=== PATIENT | male | born 1950 | race Caucasian/White ===

== ENCOUNTER 2020-11-03 09:05 | Inpatient (IN) | payer MEDICARE ==
[~2020-11-03] VITALS: Ht 185.4 cm; Wt 113.9 kg
--- NOTE | 2020-11-03 09:10 | NUR ---
GABRIELE FROM [facility] C/O BACK PAIN AND EAR PAIN S/P TRIP AND FALL. PT HAS A FEVER OF 100.2. PATIENT A/OX3-4, BREATHING EVEN AND UNLABORED, NO SOB NOTED. NEEDS ATTENDED. KEPT COMFORTABLE.
--- NOTE | 2020-11-03 09:15 | NUR ---
DR. LY AT BEDSIDE FOR EVAL.
--- NOTE | 2020-11-03 09:20 | NUR ---
IV LINE ESTABLISHED, BLOOD DRAWN SENT TO LAB. COVID SWAB SENT.
[2020-11-03] MEDS ORDERED: TDAP [DIPH/PERTUSSIS/TET] 0.5 ML VIAL IM ONE ×2 (09:28→09:30)
[2020-11-03] MEDS ORDERED: ACETAMINOPHEN ES 500 MG TABLET ONE (09:28)
[2020-11-03] MEDS ORDERED: ACETAMINOPHEN ES 500 MG TABLET PO ONE (09:30)
--- NOTE | 2020-11-03 09:50 | NUR ---
CHROMOSOMAL DISORDERS COUNSELOR AT BEDSIDE FOR XRAY.
[2020-11-03 09:51] LABS: BASOPHILS % (AUTO) 0.3 % (0.0-2.0); HEMATOCRIT 41 % (39-51); HEMOGLOBIN 13.4 g/dL (13.5-17.5); LYMPHOCYTES # (AUTO) 0.7 /CMM (0.8-4.8); LYMPHOCYTES % (AUTO) 15.2 % (20.0-44.0); MEAN CORPUSCULAR HGB CONC 33 g/dl (31.0-36.0); MEAN CORPUSCULAR VOLUME 100 fL (80-96); MONOCYTES # (AUTO) 1.1 /CMM (0.1-1.30); MONOCYTES % (AUTO) 23.8 % (2.0-12.0); NEUTROPHILS # (AUTO) 2.9 /CMM (1.8-8.9); NEUTROPHILS % (AUTO) 60.7 % (43.0-81.0); PLATELET COUNT (AUTO) 100 /CMM (150-450); RED BLOOD CELL COUNT(AUTO) 4.08 MIL/uL (4.5-6.0); WHITE BLOOD COUNT (AUTO) 4.7 K/uL (4.3-11.0)
[2020-11-03] MEDS ORDERED: LIDOCAINE HCL/MPF 1% 30 ML VIAL IJ ONE (09:52)
[2020-11-03 11:10] LABS: CALCIUM, SERUM 8.8 mg/dL (8.5-10.1); POTASSIUM 3.8 mmol/L (3.5-5.1)
[2020-11-03] MEDS ORDERED: OXYB10TA4 PO (11:10)
[2020-11-03] MEDS ORDERED: RAMI2.5C2 PO (11:10)
[2020-11-03] MEDS ORDERED: CHOL100034 PO (11:10)
[2020-11-03] MEDS ORDERED: POTA20TA83 PO (11:10)
[2020-11-03] MEDS ORDERED: MAGN400O6 PO (11:10)
[2020-11-03] MEDS ORDERED: BISA-79 PO (11:10)
[2020-11-03] MEDS ORDERED: METF-442 PO (11:10)
[2020-11-03] MEDS ORDERED: BENZ1TAB7 PO (11:10)
[2020-11-03] MEDS ORDERED: ASPI-1169 PO (11:10)
[2020-11-03] MEDS ORDERED: ATOR10TA PO (11:10)
[2020-11-03] MEDS ORDERED: FURO-144 PO (11:10)
[2020-11-03] MEDS ORDERED: CLOZ100T32 PO (11:10)
[2020-11-03] MEDS ORDERED: GLIP5TAB13 PO (11:10)
[2020-11-03] MEDS ORDERED: ACET325T53 PO (11:10)
[2020-11-03] MEDS ORDERED: TAMS-12 PO (11:10)
[2020-11-03] MEDS ORDERED: PIOG45TA5 PO (11:10)
[2020-11-03] MEDS ORDERED: DIVA-78 PO (11:10)
[2020-11-03] MEDS ORDERED: TRIH5TAB2 PO (11:10)
[2020-11-03 11:16] LABS: ALBUMIN 3.2 g/dL (3.4-5.0); BILIRUBIN,DIRECT 0.2 mg/dL (0.0-0.2); BILIRUBIN,TOTAL 0.6 mg/dL (0.2-1.0); TOTAL PROTEIN, SERUM 6.6 g/dL (6.4-8.2)
--- NOTE | 2020-11-03 11:20 | NUR ---
RADIOLOGY CALLED TO INFORM THAT CT SCAN FOR THIS PT WILL BE DELAYED FOR 30MIN D/T PT IS COVID POSITIVE. AWARE.
--- NOTE | 2020-11-03 11:22 | NUR ---
pt noted with o2 sat o2 92-94% on ra. placd on 02 via nc. satting 98%
--- NOTE | 2020-11-03 11:25 | NUR ---
MOVE PACKET TURNED IN, NURSING SUP NOTIFIED FOR BED REQUEST.
[2020-11-03] MEDS ORDERED: CT SWABBABLE VALVE TRANS SET 1 EA INFUS.SET MC ONE (11:52)
[2020-11-03] MEDS ORDERED: IOHEXOL-300 100 ML VIAL IV ONE (11:52)
[2020-11-03] MEDS ORDERED: IV NS 0.9% 250 ML IV ONE (11:52)
--- NOTE | 2020-11-03 11:58 | NUR ---
PT TO CT ON [place]
[2020-11-03 12:55] LABS: BAND % (MANUAL) 1 % (0.0-5.0); LYMPHOCYTES % (MANUAL) 15 % (16-48); MONOCYTES % (MANUAL) 15 % (0-11.0); NEUTROPHILS % (MANUAL) 69 (42-76)
--- NOTE | 2020-11-03 13:28 | NUR ---
dr hughes paged thru his office staff
--- NOTE | 2020-11-03 13:40 | NUR ---
CALLED OFFICE OF DR GUO, PAGED
--- NOTE | 2020-11-03 13:57 | NUR ---
dr hughes office repaged. awaiting call back.
--- NOTE | 2020-11-03 14:19 | NUR ---
pt in bed sleeping. nad noted
--- NOTE | 2020-11-03 15:23 | NUR ---
BED 203
--- NOTE | 2020-11-03 15:30 | NUR ---
REPORT GIVEN TO CAROLYNE GRIMES.
--- NOTE | 2020-11-03 15:47 | NUR ---
PT TRANSPORTED TO UNIT ON [facility] WITH EMT AND RN AT BEDSIDE W/ ACLS PROTOCOL. NAD NOTED DURING TRANSPORT.
[2020-11-03] MEDS ORDERED: MAGNESIUM HYDROXIDE 30 ML UDC PO PRN (19:00)
[2020-11-03] MEDS ORDERED: BISACODYL (5 MG) 5 MG TABLET.DR PO PRN (19:00)
--- NOTE | 2020-11-03 19:30 | NUR ---
BISQUE CLEANER OPENING NOTE RECEIVED PATIENT IN BED. A/OX3. ON OXYGEN 2L/MIN VIA NASAL CANNULA. RESPIRATIONS ARE EVEN AND UNLABORED. NO S/S SOB NOTED. NO C/O PAIN AT THIS TIME. EXTERNAL TELE MONITOR READS SINUS TACHY HR 105. IN NO APPARENT DISTRESS. IV ACCESS IN HAND#22 PATENT AND SALINE LOCKED. BED IS LOW AND LOCKED, HOB ELEVATED IN SEMI FOWLERS, SIDE RAILS UP X2, CALL LIGHT WITHIN REACH. WILL CONTINUE TO MONITOR.
[2020-11-03 20:00] VITALS: BP 126/69
[2020-11-03] MEDS ORDERED: DEXTROSE 50%-WATER 50 ML DISP.SYRIN IV PRN (20:00)
[2020-11-03] MEDS ORDERED: ONDANSETRON HCL/PF 4 MG/2 ML VIAL IV PRN (20:30)
[2020-11-03] MEDS ORDERED: MORPHINE SULFATE INJ 2 MG/ML DISP.SYRIN IV PRN (20:30)
[2020-11-03] MEDS: ZITHROMAX 500 MG/250 ML D5W IV SCH ×2 (22:42)
[2020-11-03] MEDS: BLOOD SUGAR DIAGNOSTIC 1 EACH STRIP IN SCH (22:46)
[2020-11-03] MEDS: ATORVASTATIN 10 MG TABLET PO SCH (22:47)
[2020-11-03] MEDS: CLOZAPINE 100 MG TABLET PO SCH (22:47)
[2020-11-03] MEDS: TAMSULOSIN 0.4 MG CAP.SR.24H PO SCH (22:47)
[2020-11-03] MEDS: INSULIN REGULAR, HUMAN 100 UNIT/ML 3 ML VIAL SQ PRN (22:59)
[2020-11-04] VITALS: BP 109/52
--- NOTE | 2020-11-04 00:20 | NUR ---
telephone diaphragm assembler note 0000 vs show patient temp 99. ac turned on. sheets removed. will continue to monitor.
[2020-11-04] MEDS: CEFTRIAXONE 1 G in IV D5W 50 ML IV SCH ×2 (00:33→21:49)
[2020-11-04] MEDS: NITROGLYCERIN 30 GM TUBE TP SCH ×4 (00:37→17:35)
[2020-11-04 04:00] VITALS: BP 105/57
--- NOTE | 2020-11-04 05:57 | NUR ---
television operator note called rita molina for patient past medical history. fax number given [phone]. awaiting fax.
[2020-11-04] MEDS: PANTOPRAZOLE 40 MG TABLET.DR PO SCH (06:50)
[2020-11-04] MEDS: BLOOD SUGAR DIAGNOSTIC 1 EACH STRIP IN SCH ×4 (06:50→21:49)
--- NOTE | 2020-11-04 07:34 | NUR ---
telecommunicator note informed dr. hughes patient left ankle is red and warm and the other is not. md telephone order order venous doppler us if left ankle. order read back noted and carried out. will endorse to next shift.
--- NOTE | 2020-11-04 07:39 | NUR ---
AXLE INSPECTOR CLOSING NOTE PATIENT RESTING IN BED. A/OX3. REMAINS ON OXYGEN 2L/MIN VIA NASAL CANNULA. NO RESP DISTRESS NOTED. NO C/O PAIN T/O SHIFT. EXTERNAL TELE MONITOR READS SINUS TACHY. NO DISTRESS. IV ACCESS MAINTAINED IN HAND#22. BED REMAINS LOW AND LOCKED, HOB ELEVATED IN SEMI FOWLERS, SIDE RAILS UP X2, CALL LIGHT WITHIN REACH. WILL ENDORSE TO NEXT SHIFT.
[2020-11-04 08:00] VITALS: BP 122/69
--- NOTE | 2020-11-04 08:17 | NUR ---
WIRE DRAWING MACHINE TENDER OPENING NOTES RECEIVED PATIENT IN BED, AWAKE, A/O X 3. PATIENT ON OXYGEN THERAPY AT 2 LPM VIA NASAL CANULA; BREATHING IS EVEN AND UNLABORED AT THIS TIME. TELE MONITOR WITH A CURRENT READING OF SINUS TACHY 101 BPM. NO COMPLAINS OF PAIN. IV ACCESS ON L HAND G # 20. SAFETY PRECAUTIONS IN PLACE; BED IN LOW POSITION AND LOCKED, RAILS UP X2, CALL LIGHT WITHIN REACH. WILL CONTINUE TO MONITOR PATIENT.
[2020-11-04] MEDS: METFORMIN 500 MG TABLET PO SCH ×2 (08:57→16:51)
[2020-11-04] MEDS: POTASSIUM CHLORIDE 20 MEQ TAB.PRT.SR PO SCH (08:57)
[2020-11-04] MEDS: PIOGLITAZONE HCL 15 MG TABLET PO SCH (08:58)
[2020-11-04] MEDS: ASPIRIN EC 81 MG TABLET.DR PO SCH (08:58)
[2020-11-04] MEDS: DIVALPROEX SODIUM 500 MG TABLET.DR PO SCH ×3 (08:58→16:51)
[2020-11-04] MEDS: glipiZIDE 5 MG TABLET PO SCH (08:58)
[2020-11-04] MEDS: BENZTROPINE MESYLATE (1 MG) 1 MG TABLET PO SCH ×2 (08:58→16:51)
[2020-11-04] MEDS: RAMIPRIL 1.25 MG CAPSULE PO SCH (08:59)
[2020-11-04] MEDS ORDERED: FUROSEMIDE 40 MG TABLET PO SCH (09:00)
[2020-11-04] MEDS ORDERED: ASPIRIN 81 MG TAB.CHEW PO SCH (09:00)
[2020-11-04] MEDS: TRIHEXYPHENIDYL HCL 5 MG TABLET PO SCH (09:01)
[2020-11-04] MEDS: ENOXAPARIN SODIUM 40 MG/0.4 ML DISP.SYRIN SQ SCH (10:01)
--- NOTE | 2020-11-04 10:52 | NUR ---
WOUND CARE CONSULT: REVIEWED CHART, NURSING DOCUMENTATION AND PHOTOS WHICH INDICATE LEFT EAR CLOSED LACERATION AND LEFT 3RD TOE WOUND, PRESENT ON ADMISSION. RECOMMEND DPM CONSULT. DR ZAIDI NOTIFIED OF CONSULT REQUEST. IN AGREEMENT WITH PLAN OF CARE.
[2020-11-04] MEDS ORDERED: Z GUARD REMEDY 2 OZ OINT TP PRN (11:00)
[2020-11-04] MEDS: Z GUARD REMEDY 2 OZ OINT TP SCH (11:13)
[2020-11-04 11:37] LABS: THYROID STIMULATING HORMONE 1.199 uIU/mL (0.358-3.74)
[2020-11-04 12:00] VITALS: BP 119/72
[2020-11-04] MEDS ORDERED: INFLUENZA VACCINE 2020-21 0.5 ML DISP.SYRIN IM ONE ×2 (12:30→19:30)
[2020-11-04] MEDS: IV NS 0.9% 1,000 ML IV PRN (17:57)
--- NOTE | 2020-11-04 18:35 | NUR ---
DRILL SHARPENER CLOSING NOTES PATIENT IN BED, ASLEEP AT THIS TIME. PATIENT ON OXYGEN THERAPY AT 2 LPM VIA NASAL CANULA; BREATHING IS EVEN AND UNLABORED DURING THE DAY. TELE MONITOR WITH A CURRENT READING OF SINUS RHYTHM 81 BPM. NO COMPLAINS OF PAIN DURING THE DAY. IV ACCESS ON L HAND G # 20 INFUSING NS AT 100 MLS/HR. ALL NEEDS ATTENDED THROUGHOUT THE DAY. PATIENT CLEAN AND DRY. SAFETY PRECAUTIONS IN PLACE; BED IN LOW POSITION AND LOCKED, RAILS UP X2, CALL LIGHT WITHIN REACH. WILL ENDORSE TO FREIGHT UNLOADER NURSE.
--- NOTE | 2020-11-04 19:30 | NUR ---
SENIOR EMBEDDED SOFTWARE ENGINEER NOTE: PATIENT RESTING IN BED, NO ACUTE DISTRESS NOTED. BREATHING EVEN AND UNLABORED, NO SOB NOTED. IV TO LEFT HAND IN PLACE, INFUSING NS AT 100ML/HR. NO S/S OF HYPER/HYPOGLYCEMIA NOTED. ISOLATION PRECAUTION OBSERVED. BED LOCKED AND IN LOWEST POSITION, CALL LIGHT IN REACH. WILL CONTINUE TO MONITOR.
[2020-11-04 20:00] VITALS: BP 131/78
[2020-11-04] MEDS: ZITHROMAX 500 MG/250 ML D5W IV SCH ×2 (20:12)
[2020-11-04] MEDS: CLOZAPINE 100 MG TABLET PO SCH (21:52)
[2020-11-04] MEDS: ATORVASTATIN 10 MG TABLET PO SCH (21:52)
[2020-11-04] MEDS: TAMSULOSIN 0.4 MG CAP.SR.24H PO SCH (21:52)
[2020-11-04] MEDS: INSULIN REGULAR, HUMAN 100 UNIT/ML 3 ML VIAL SQ PRN (22:17)
--- NOTE | 2020-11-04 22:30 | NUR ---
CONTACT CENTER CONSULTANT NOTE: PATIENT BLOOD SUGAR LEVEL 184MG/DL, PATIENT TO RECEIVE 3 UNITS PER SLIDING SCALE, NO S/S OF HYPER/HYPOGLYCEMIA NOTED. SNACKS AT BEDSIDE. WILL CONTINUE TO MONITOR.
[2020-11-05 00:15] VITALS: BP 135/71
[2020-11-05] MEDS: NITROGLYCERIN 30 GM TUBE TP SCH ×4 (00:50→18:00)
[2020-11-05] MEDS: IV NS 0.9% 1,000 ML IV PRN ×2 (06:19→20:43)
[2020-11-05 06:58] LABS: BASOPHILS % (AUTO) 0.2 % (0.0-2.0); HEMATOCRIT 42 % (39-51); LYMPHOCYTES # (AUTO) 0.6 /CMM (0.8-4.8); LYMPHOCYTES % (AUTO) 17.1 % (20.0-44.0); MEAN CORPUSCULAR HGB CONC 33 g/dl (31.0-36.0); MEAN CORPUSCULAR VOLUME 99 fL (80-96); MONOCYTES # (AUTO) 0.5 /CMM (0.1-1.30); NEUTROPHILS # (AUTO) 2.2 /CMM (1.8-8.9); NEUTROPHILS % (AUTO) 67.7 % (43.0-81.0); PLATELET COUNT (AUTO) 85 /CMM (150-450); RED BLOOD CELL COUNT(AUTO) 4.26 MIL/uL (4.5-6.0); WHITE BLOOD COUNT (AUTO) 3.3 K/uL (4.3-11.0)
[2020-11-05] MEDS: BLOOD SUGAR DIAGNOSTIC 1 EACH STRIP IN SCH ×4 (07:00→21:57)
[2020-11-05] MEDS: INSULIN REGULAR, HUMAN 100 UNIT/ML 3 ML VIAL SQ PRN ×3 (07:00→22:03)
[2020-11-05 07:02] LABS: ALBUMIN 3.1 g/dL (3.4-5.0); BILIRUBIN,TOTAL 0.5 mg/dL (0.2-1.0); CALCIUM, SERUM 8.4 mg/dL (8.5-10.1); CREATININE 0.9 mg/dL (0.6-1.3); MAGNESIUM 1.8 mg/dL (1.8-2.4); PHOSPHORUS 2.8 mg/dL (2.5-4.9); POTASSIUM 3.8 mmol/L (3.5-5.1); TOTAL PROTEIN, SERUM 7.1 g/dL (6.4-8.2)
--- NOTE | 2020-11-05 07:15 | NUR ---
TELEPHONE PLANT POWER OPERATOR NOTE: PATIENT RESTING IN BED, NO ACUTE DISTRESS NOTED. BREATHING EVEN AND UNLABORED, NO SOB NOTED. IV TO LEFT HAND IN PLACE, INFUSING NS AT 100ML/HR. PATIENT BLOOD SUGAR LEVEL 176MG/DL,PATIENT TO RECEIVE 3 UNITS PER SLIDING SCALE, NO S/S OF HYPER/HYPOGLYCEMIA NOTED. ISOLATION PRECAUTION OBSERVED. BED LOCKED AND IN LOWEST POSITION, CALL LIGHT IN REACH. WILL ENDORSE TO DAY NURSE TO CONTINUE WITH PLAN OF CARE.
--- NOTE | 2020-11-05 07:15 | NUR ---
DIRECTOR MATERNAL CHILD NOTES PATIENT IN BED ALERT ORIENTED X 3. NO ACUTE DISTRESS NOTED. NO SOB NOTED. BREATHING UNLABORED. DENIED ANY PAIN. IV ACCESS PATENT AND INTACT, NO REDNESS, NO SWELLING NOTED. HEAD OF BED ELEVATED. SAFETY MEASURES IN PLACE. CALL LIGHT WITHIN REACH. WILL CONTINUE TO MONITOR ACCORDINGLY.
[2020-11-05] MEDS: PANTOPRAZOLE 40 MG TABLET.DR PO SCH (07:54)
[2020-11-05 08:00] VITALS: BP 152/105
--- NOTE | 2020-11-05 08:49 | NUR ---
MS RN NOTES DIET ORDER CLARIFIED WITH DR BRET GUO MD ORDERED CURRENT DIET STARTING TODAY.
[2020-11-05] MEDS: ENOXAPARIN SODIUM 40 MG/0.4 ML DISP.SYRIN SQ SCH (09:00)
[2020-11-05] MEDS: PIOGLITAZONE HCL 15 MG TABLET PO SCH (09:15)
[2020-11-05] MEDS: METFORMIN 500 MG TABLET PO SCH ×2 (09:15→16:38)
[2020-11-05] MEDS: POTASSIUM CHLORIDE 20 MEQ TAB.PRT.SR PO SCH (09:15)
[2020-11-05] MEDS: ASPIRIN EC 81 MG TABLET.DR PO SCH (09:15)
[2020-11-05] MEDS: DIVALPROEX SODIUM 500 MG TABLET.DR PO SCH ×3 (09:15→16:38)
[2020-11-05] MEDS: glipiZIDE 5 MG TABLET PO SCH (09:16)
[2020-11-05] MEDS: BENZTROPINE MESYLATE (1 MG) 1 MG TABLET PO SCH ×2 (09:16→16:38)
[2020-11-05] MEDS: TRIHEXYPHENIDYL HCL 5 MG TABLET PO SCH (09:16)
[2020-11-05] MEDS: RAMIPRIL 1.25 MG CAPSULE PO SCH (09:19)
[2020-11-05] MEDS: Z GUARD REMEDY 2 OZ OINT TP SCH (09:19)
--- NOTE | 2020-11-05 09:19 | NUR ---
MANAGER TECHNICAL TRAINING NOTES PLATELET 85, CLARIFIED WITH DR BRET GUO REGARDING LOVENOX IF HE WANTS GIVEN SCHEDULED 0900, DR GUO ORDER TO HOLD, ORDER CLARIFIED AND READ BACK WITH MD, NOTED AND CARRIED OUT.
[2020-11-05 10:12] LABS: CHOLESTEROL 93 mg/dL (<200); HDL CHOLESTEROL 44 mg/dL (40-60); LDL 34 mg/dL (0-99); TRIGLYCERIDES 135 mg/dL (30-150)
[2020-11-05] MEDS: ACETAMINOPHEN 325 MG TABLET PO PRN (10:30)
--- NOTE | 2020-11-05 10:30 | NUR ---
UPHOLSTERY CUTTER NOTES PATIENT SEEN AND EVALUATED BY DR BRET GUO, MADE AWARE THAT PATIENT NOTED WITH PULSE RATE 117, TEMPERATURE 100.6, NO NEW ORDER MADE AT THIS TIME.
[2020-11-05 10:46] LABS: LYMPHOCYTES % (MANUAL) 20 % (16-48); MONOCYTES % (MANUAL) 11 % (0-11.0); NEUTROPHILS % (MANUAL) 69 (42-76)
[2020-11-05 12:00] VITALS: BP 106/64
[2020-11-05 13:04] LABS: C-REACTIVE PROTEIN 11.2 mg/dL (0.0-0.9)
[2020-11-05 16:00] VITALS: BP 91/52
[2020-11-05] MEDS: DEXAMETHASONE SOD PHOSPHATE 10 MG/ML VIAL IV SCH (16:38)
--- NOTE | 2020-11-05 19:00 | NUR ---
LAGGING MACHINE OPERATOR NOTES PATIENT IN BED ALERT ORIENTED X 3. NO ACUTE DISTRESS NOTED. NO SOB NOTED. BREATHING UNLABORED. DENIED ANY PAIN. IV ACCESS PATENT AND INTACT, NO REDNESS, NO SWELLING NOTED. HEAD OF BED ELEVATED.NEEDS ATTENDED AND ANTICIPATED. SAFETY MEASURES IN PLACE. CALL LIGHT WITHIN REACH. WILL ENDORSE TO NIGHT NURSE FOR CONTINUITY OF CARE.
[2020-11-05 20:00] VITALS: BP 117/66
[2020-11-05] MEDS: CEFTRIAXONE 1 G in IV D5W 50 ML IV SCH (21:49)
[2020-11-05] MEDS: ATORVASTATIN 10 MG TABLET PO SCH (21:50)
[2020-11-05] MEDS: TAMSULOSIN 0.4 MG CAP.SR.24H PO SCH (21:50)
[2020-11-05 21:52] VITALS: BP 127/64
[2020-11-05] MEDS: CLOZAPINE 100 MG TABLET PO SCH (21:54)
[2020-11-05] MEDS: METOPROLOL TARTRATE 50 MG TABLET PO SCH (21:54)
--- NOTE | 2020-11-05 23:37 | NUR ---
pattern molder: received report from bautista young at 1915. pt in bed, awake, a/o x2-3 with periods of confusion. on 3l oxygen via nc respirations even and unlabored, spo2 ranging 90-92%. pt claimed he was a smoker for 6years, but was not dx with copd. iv access on right hand patent and flushing well, infusing with ns at 100ml/hr. sinus rhythm. 2199: all due meds administered, zithromax iv atb dc'd by . accu check performed result is 187, 3 units of insulin given per sliding scale. 2229: assisted gasoline engine assembler in providing bed bath to pt. accidentally, pt's iv access pulled out. will try inserting new iv access. safety precautions for fall initiated, call light in reach, will continue monitoring pt.
[2020-11-06] VITALS (9 sets, daily range): BP systolic 110–137; BP diastolic 50–72
[2020-11-06] MEDS: NITROGLYCERIN 30 GM TUBE TP SCH ×4 (00:08→17:03)
--- NOTE | 2020-11-06 03:33 | NUR ---
rn notes: assisted programming coordinator in providing another bed bath to pt and complete linen change, pt found playing with his bm, all hands and nails covered with stool.
[2020-11-06] MEDS: INSULIN REGULAR, HUMAN 100 UNIT/ML 3 ML VIAL SQ PRN ×4 (06:01→21:33)
[2020-11-06] MEDS: BLOOD SUGAR DIAGNOSTIC 1 EACH STRIP IN SCH ×4 (06:02→21:33)
[2020-11-06 06:37] LABS: CALCIUM, SERUM 8.5 mg/dL (8.5-10.1); CREATININE 0.9 mg/dL (0.6-1.3); MAGNESIUM 1.9 mg/dL (1.8-2.4)
--- NOTE | 2020-11-06 06:48 | NUR ---
END OF SHIFT REPORT: PT REMAINS ON 3L OXYGEN VIA NC, RESPIRATION EVEN AND UNLABORED. IV ACCESS REMAINS PATENT AND FLUSHING WELL INFUSING WITH NS AT 100 ML/HR, NO S/S OF IV INFILTRATION NOTED. REMAINS SINUS RHYTHM HR 68. REMAINS AFEBRILE. PLAN OF CARE: CONSIDER CONVALESCENT PLASMA AND REMDESEVIR. CONTINUE IV ATB. SAFETY PRECAUTIONS FOR FALL REMAINS ENGAGED, CALL LIGHT IN REACH, WILL ENDORSE TO DAY RN FOR CONTINUITY OF CARE.
[2020-11-06] MEDS: PANTOPRAZOLE 40 MG TABLET.DR PO SCH (07:36)
--- NOTE | 2020-11-06 07:51 | NUR ---
RAMP ATTENDANT OPENING NOTES RECEIVED PT ON BED, AOX3. RESPIRATION EVEN AND NON LABORED WITH NO ACUTE RESPIRATORY DISTRESS, ON O2 AT 3 LPM TOLERATING WELL. HOB ELEVATED. ABD SOFT AND NON DISTENDED WITH ACTIVE BOWEL SOUNDS, ABLE TO TOLERATE CCHO DIET. PT DENIES PAIN AND DISCOMFORT. SKIN WARM TO TOUCH AND DRY. BLE OFF LOAD. IV SITE AT RAC #20 PATENT IN FLUSHING H/L, SITE HAS NO S/SX OF INFILTRATION. IVF HELD DUE TO AUDIBLE CRACKLES WHEN IN PLACE, PT TOLERATE WATER. TELE MONITOR SHOWS SINUS RHYTHM 82 WITH BBB. ON CONTACT/DROPLET ISOLATION DUE TO +COVID, PENDING PCR. PPE UTILIZED PER PROTOCOL. BED IN LOW LOCKED POSITION, BED ALARM ON FOR ASSISTANCE ALERT, SRX2 UP FOR SAFETY, CALL LIGHT WITHIN REACH, WILL CONTINUE TO EVALUATE CARE.
[2020-11-06] MEDS: MUPIROCIN OINT 2% 22 GM TUBE TP SCH ×2 (08:41→21:26)
[2020-11-06] MEDS: DEXAMETHASONE SOD PHOSPHATE 10 MG/ML VIAL IV SCH (08:42)
[2020-11-06] MEDS: ENOXAPARIN SODIUM 40 MG/0.4 ML DISP.SYRIN SQ SCH (08:42)
[2020-11-06] MEDS: METFORMIN 500 MG TABLET PO SCH ×2 (08:43→16:04)
[2020-11-06] MEDS: METOPROLOL TARTRATE 50 MG TABLET PO SCH ×2 (08:44→21:08)
[2020-11-06] MEDS: PIOGLITAZONE HCL 15 MG TABLET PO SCH (08:44)
[2020-11-06] MEDS: glipiZIDE 5 MG TABLET PO SCH (08:44)
[2020-11-06] MEDS: POTASSIUM CHLORIDE 20 MEQ TAB.PRT.SR PO SCH (08:44)
[2020-11-06] MEDS: TRIHEXYPHENIDYL HCL 5 MG TABLET PO SCH (08:44)
[2020-11-06] MEDS: BENZTROPINE MESYLATE (1 MG) 1 MG TABLET PO SCH ×2 (08:44→16:04)
[2020-11-06] MEDS: DIVALPROEX SODIUM 500 MG TABLET.DR PO SCH ×3 (08:44→16:04)
[2020-11-06] MEDS: ASPIRIN EC 81 MG TABLET.DR PO SCH (08:44)
[2020-11-06] MEDS: RAMIPRIL 1.25 MG CAPSULE PO SCH (08:44)
[2020-11-06] MEDS: Z GUARD REMEDY 2 OZ OINT TP SCH (08:45)
--- NOTE | 2020-11-06 10:06 | NUR ---
HEEL SEAT POUNDER NOTES PER DR. BRANT DC IVF NS ORDERED, ORDER READ BACK, NOTED AND CARRIED OUT. PT AWARE
--- NOTE | 2020-11-06 11:13 | NUR ---
FLOORING MACHINE OPERATOR NOTES PT SEEN AND EVALUATED BY DR. GREENE, FLOORING MACHINE OPERATOR. WEAN OFF O2 PER MD. LOWERED TO 2LPM, SATING 94%. HOB KEPT ELEVATED. CONT TO MONITOR
--- NOTE | 2020-11-06 12:22 | NUR ---
SALES ACCOUNT LEADER NOTES YUN FROM LAB CALLED FOR COVID-19 RESULT - POSITIVE. DR. GUO PAGED.
--- NOTE | 2020-11-06 18:59 | NUR ---
ASBESTOS COVERER CLOSING NOTES PT AAOX2-3. TOLERATING O2 AT 3LPM VIA N/C SATING >92%, NO PRESENCE OF ACUTE RESPIRATORY DISTRESS. PT DENIES PAIN AND DISCOMFORT. SKIN WARM TO TOUCH AND DRY. IV SITE AT RAC #20 PATENT IN FLUSHING H/L, SITE HAS NO S/SX OF INFILTRATION. TELE MONITOR SHOWS SINUS RHYTHM 71 WITH BBB. ON CONTACT/DROPLET ISOLATION DUE PENDING PCR. PPE UTILIZED PER PROTOCOL. SAFETY MEASURES PROVIDED. ENDORSED CARE TO NEXT SHIFT.
--- NOTE | 2020-11-06 19:10 | NUR ---
TELE/RN OPENING NOTES: RECEIVED PT. RESTING ON BED, AOX3, WITH EPISODES OF CONFUSION. VERBALLY RESPONSIVE AND VENU TO MAKE NEEDS KNOWN. RESPIRATION EVEN & NON LABORED. NO S/S OF ACUTE RESPIRATORY DISTRESS, ON O2 AT 2 LPM SATURATING WELL AT 95%. HOB ELEVATED. ABD SOFT AND NON DISTENDED WITH ACTIVE BOWEL SOUNDS. PT DENIES PAIN AND DISCOMFORT. SKIN WARM TO TOUCH AND DRY. BLE OFF LOAD. IV SITE AT RAC #20 PATENT IN FLUSHING H/L, SITE HAS NO S/SX OF INFILTRATION. IVF HELD AT THIS TIME. PT TOLERATING PO HYDRATION. TELE MONITOR SHOWS SINUS RHYTHM 66. ON CONTACT/DROPLET ISOLATION DUE TO + COVID, FOR RAPID AND PCR. PPE UTILIZED PER PROTOCOL. SAFETY MEASURES IN PLACE. BED IN LOW LOCKED POSITION, BED ALARM ON FOR ASSISTANCE ALERT, SRX2 UP FOR SAFETY, CALL LIGHT WITHIN REACH, WILL CONTINUE TO MONITOR ACCORDINGLY.
[2020-11-06] MEDS: CEFTRIAXONE 1 G in IV D5W 50 ML IV SCH (21:06)
[2020-11-06] MEDS: ATORVASTATIN 10 MG TABLET PO SCH (21:08)
[2020-11-06] MEDS: CLOZAPINE 100 MG TABLET PO SCH (21:08)
[2020-11-06] MEDS: TAMSULOSIN 0.4 MG CAP.SR.24H PO SCH (21:08)
[2020-11-06] MEDS: DOXYCYCLINE 100 MG in IV D5W 100 ML IV SCH (22:06)
--- NOTE | 2020-11-06 22:30 | NUR ---
TELE/RN NOTES: ACCUCHECK OF 2200 IS 161. ADMINISTERED REG. INSULIN 3 UNITS PER SLIDING SCALE. GIVEN APPLE SAUCE PT. REQUESTED. WILL CONTINUE TO MONITOR.
[2020-11-07] VITALS: BP 128/61
--- NOTE | 2020-11-07 | NUR ---
TELE/RN NOTES: PT. REFUSED NITROL OINTMENT AND REFUSED PICTURES. EDUCATED ON RISKS AND BENEFITS. STILL REFUSED. WILL CONTINUE TO MONITOR.
[2020-11-07] MEDS: ACETAMINOPHEN 325 MG TABLET PO PRN (02:21)
[2020-11-07 04:00] VITALS: BP 137/74
--- NOTE | 2020-11-07 04:00 | NUR ---
TELE/RN NOTES: KEPT PATIENT CLEAN AND DRY, REFUSED PICTURES AGAIN AT THIS TIME. WILL CONTINUE TO MONITOR.
[2020-11-07] MEDS: NITROGLYCERIN 30 GM TUBE TP SCH ×4 (05:44→17:09)
--- NOTE | 2020-11-07 05:50 | NUR ---
TELE/RN NOTES: PT. STARTED BECOMING AGITATED. WANTING TO GET OUT OF BED AND WALK. GOT AN ORDER FOR ADULT BOTH SOFT WRIST RESTRAINTS FRO DR. JOY. PLACED AND WILL RECEHCK PT SKIN FOR CIRCULATION.
[2020-11-07] MEDS: BLOOD SUGAR DIAGNOSTIC 1 EACH STRIP IN SCH ×4 (06:51→21:44)
[2020-11-07] MEDS: INSULIN REGULAR, HUMAN 100 UNIT/ML 3 ML VIAL SQ PRN ×2 (06:52→21:46)
--- NOTE | 2020-11-07 07:11 | NUR ---
TELE/RN CLOSING NOTES: PT. REMAINS RESTING ON BED, AOX3, WITH EPISODES OF CONFUSION. VERBALLY RESPONSIVE AND ABLE TO MAKE NEEDS KNOWN. ACUTE MED. RESTRAINTS SOFT WRIST BILATERAL IN PLACED. WITH AN ORDER. WILL CHECK SKIN REGULARLY. RESPIRATION EVEN & NON LABORED. NO S/S OF ACUTE RESPIRATORY DISTRESS, ON O2 AT 2 LPM SATURATING WELL AT 95%. HOB ELEVATED. PT DENIES PAIN AND DISCOMFORT. IV SITE AT RAC #20 PATENT IN FLUSHING H/L, SITE HAS NO S/SX OF INFILTRATION. PT TOLERATING PO HYDRATION. ALL DUE MEDS GIVEN ORDERED. ACCUCHECK FOR AC IS 137. ADMIN 2 UNITS OF REG. INSULIN PER SLIDING SCALE. TELE MONITOR SHOWS SINUS RHYTHM 60S. ON CONTACT/DROPLET ISOLATION DUE TO + COVID, FOR RAPID AND PCR. PPE UTILIZED PER PROTOCOL. SAFETY MEASURES IN PLACE. BED IN LOW LOCKED POSITION, BED ALARM ON FOR ASSISTANCE ALERT, SRX2 UP FOR SAFETY, CALL LIGHT WITHIN REACH, ALL NURSING NEEDS MET AND RENDERED. KEPT CLEAN AND DRY AT ALL TIMES. WILL ENDORSE TO DAY SHIFT FOR OBEY.
--- NOTE | 2020-11-07 07:30 | NUR ---
DIRECTOR OF ACCOUNTS RECEIVABLE NOTES PT IN BED, AWAKE, ALERT TO SELF, VERBALLY RESPONSIVE, WITH CONFUSION, NO COMPLAINT OF PAIN, RESPIRATIONS NORMAL, CALL LIGHT WITHIN REACH, SOFT WRIST RESTRAINTS ON, PT TRYING TO GET OUT OF BED, SAFETY PRECAUTIONS OBSERVED, BED ALARM ON AT ALL TIMES, NEEDS ATTENDED.
[2020-11-07 08:00] VITALS: BP 124/46
[2020-11-07 08:14] LABS: C-REACTIVE PROTEIN 4.2 mg/dL (0.0-0.9)
[2020-11-07 08:21] LABS: CALCIUM, SERUM 8.8 mg/dL (8.5-10.1); CREATININE 0.8 mg/dL (0.6-1.3); POTASSIUM 4.5 mmol/L (3.5-5.1)
[2020-11-07] MEDS: ENOXAPARIN SODIUM 40 MG/0.4 ML DISP.SYRIN SQ SCH (09:00)
[2020-11-07] MEDS: PIOGLITAZONE HCL 15 MG TABLET PO SCH (09:31)
[2020-11-07] MEDS: POTASSIUM CHLORIDE 20 MEQ TAB.PRT.SR PO SCH (09:32)
[2020-11-07] MEDS: DIVALPROEX SODIUM 500 MG TABLET.DR PO SCH ×3 (09:33→17:08)
[2020-11-07] MEDS: PANTOPRAZOLE 40 MG TABLET.DR PO SCH (09:33)
[2020-11-07] MEDS: ASPIRIN EC 81 MG TABLET.DR PO SCH (09:33)
[2020-11-07] MEDS: BENZTROPINE MESYLATE (1 MG) 1 MG TABLET PO SCH ×2 (09:33→17:08)
[2020-11-07] MEDS: METFORMIN 500 MG TABLET PO SCH ×2 (09:33→17:08)
[2020-11-07] MEDS: RAMIPRIL 1.25 MG CAPSULE PO SCH (09:34)
[2020-11-07] MEDS: METOPROLOL TARTRATE 50 MG TABLET PO SCH ×2 (09:34→21:00)
[2020-11-07] MEDS: glipiZIDE 5 MG TABLET PO SCH (09:34)
[2020-11-07] MEDS: TRIHEXYPHENIDYL HCL 5 MG TABLET PO SCH (09:35)
[2020-11-07] MEDS: DEXAMETHASONE SOD PHOSPHATE 10 MG/ML VIAL IV SCH (09:35)
[2020-11-07] MEDS: DOXYCYCLINE 100 MG in IV D5W 100 ML IV SCH ×2 (09:53→20:16)
[2020-11-07] MEDS: Z GUARD REMEDY 2 OZ OINT TP SCH (10:00)
[2020-11-07] MEDS: MUPIROCIN OINT 2% 22 GM TUBE TP SCH ×2 (10:03→20:16)
[2020-11-07 12:00] VITALS: BP 153/74
--- NOTE | 2020-11-07 12:00 | NUR ---
SENIOR GRANT WRITER NOTES PT IN BED, AWAKE, ALERT TO SELF, NOT IN DISTRESS, WITH CONFUSION, NO COMPLAINT OF PAIN, SEEN BY DR. GUO, ON SOFT WRIST RESTRAINTS, PT ATTEMPTS TO PULL OUT TUBINGS, ASSISTED WITH MEALS, KEPT CLEAN AND DRY.
[2020-11-07 16:00] VITALS: BP 141/77
--- NOTE | 2020-11-07 19:00 | NUR ---
AMBULANCE OFFICER NOTES PT IN BED, RESTING, CONFUSED, ALERT TO SELF, PM MEDS GIVEN, PM CARE PROVIDED, ASSISTED WITH ADL'S AND REPOSITIONING, KEPT CLEAN, DRY AND COMFORTABLE.
[2020-11-07 19:03] LABS: BASOPHILS % (AUTO) 0.2 % (0.0-2.0); HEMATOCRIT 38 % (39-51); HEMOGLOBIN 12.7 g/dL (13.5-17.5); LYMPHOCYTES # (AUTO) 0.3 /CMM (0.8-4.8); LYMPHOCYTES % (AUTO) 6.6 % (20.0-44.0); MEAN CORPUSCULAR HGB CONC 34 g/dl (31.0-36.0); MEAN CORPUSCULAR VOLUME 98 fL (80-96); MONOCYTES # (AUTO) 0.5 /CMM (0.1-1.30); MONOCYTES % (AUTO) 10.6 % (2.0-12.0); NEUTROPHILS # (AUTO) 3.9 /CMM (1.8-8.9); NEUTROPHILS % (AUTO) 82.6 % (43.0-81.0); PLATELET COUNT (AUTO) 116 /CMM (150-450); RED BLOOD CELL COUNT(AUTO) 3.85 MIL/uL (4.5-6.0); WHITE BLOOD COUNT (AUTO) 4.7 K/uL (4.3-11.0)
--- NOTE | 2020-11-07 19:40 | NUR ---
RECRUITMENT INTERNSHIP OPENING NOTES RECEIVED PATIENT IN BED, ALERT AND ORIENTED X 2 HYPERVERBAL AND CONFUSED BUT ABLE TO FOLLOW SIMPLE DIRECTIONS. BREATHING REGULAR AND UNLABORED ON OXYGEN AT 2L/MIN VIA NASAL CANNULA, LATEST SPO2 94%. RIGHT AC G20 IV LINE INTACT AND PATENT, FLUSHING WELL WITH NO BLEEDING OR S/S OF INFILTRATION NOTED. ON CARDIAC MONITORING WITH NORMAL SINUS RHYTHM AT 95bpm. NO S/S OF PAIN/DISCOMFORT NOTED AT THIS TIME. BILATERAL SOFT WRIST RESTRAINTS ON, SKIN ASSESSMENT AND CIRCULATION CHECKED. BED LOW AND LOCKED ON SEMI FOWLERS POSITION. CALL LIGHT IN REACH. MAINTAINED ON CONTACT/DROPLET ISOLATION FOR COVID19. PROPER HAND WASHING AND ISOLATION PRECAUTION OBSERVED. WILL CONTINUE TO MONITOR.
[2020-11-07 20:00] VITALS: BP 102/73
--- NOTE | 2020-11-07 20:00 | NUR ---
INFORMATION TECHNOLOGY AUDITOR NOTES IV SITE INFILTRATED, NEW SITE REINSERTED ON RIGHT HAND G22 FLUSHING WELL WITH GOOD BLOOD BACK FLOW.
[2020-11-07 20:51] LABS: BAND % (MANUAL) 1 % (0.0-5.0); LYMPHOCYTES % (MANUAL) 8 % (16-48); MONOCYTES % (MANUAL) 7 % (0-11.0); NEUTROPHILS % (MANUAL) 84 (42-76)
[2020-11-07] MEDS: TAMSULOSIN 0.4 MG CAP.SR.24H PO SCH (21:09)
[2020-11-07] MEDS: ATORVASTATIN 10 MG TABLET PO SCH (21:09)
[2020-11-07] MEDS: CLOZAPINE 100 MG TABLET PO SCH (21:09)
[2020-11-07] MEDS: CEFTRIAXONE 1 G in IV D5W 50 ML IV SCH (21:21)
[2020-11-08] VITALS (7 sets, daily range): BP systolic 114–134; BP diastolic 65–96
[2020-11-08] MEDS: NITROGLYCERIN 30 GM TUBE TP SCH ×4 (00:47→17:25)
[2020-11-08] MEDS: BLOOD SUGAR DIAGNOSTIC 1 EACH STRIP IN SCH ×4 (06:33→22:13)
[2020-11-08] MEDS: PANTOPRAZOLE 40 MG TABLET.DR PO SCH (06:34)
[2020-11-08] MEDS: INSULIN REGULAR, HUMAN 100 UNIT/ML 3 ML VIAL SQ PRN ×4 (06:34→22:14)
--- NOTE | 2020-11-08 07:00 | NUR ---
SMOKE INSPECTOR CLOSING NOTES PATIENT IN BED, ALERT AND ORIENTED X 2 CONFUSED. AFEBRILE WITH NO S/S OF DISTRESS OBSERVED. RIGHT AC G20 IV LINE PATENT AND FLUSHING WELL. MAINTAINED ON CARDIAC MONITORING WITH NORMAL SINUS RHYTHM AT 88bpm. NO S/S OF PAIN/DISCOMFORT NOTED AT THIS TIME. BILATERAL SOFT WRIST RESTRAINTS ON. BED LOW AND LOCKED ON SEMI FOWLERS POSITION. CALL LIGHT IN REACH. WILL ENDORSE TO MORNING SHIFT FOR OBEY.
--- NOTE | 2020-11-08 08:05 | NUR ---
RN OPENING NOTE Patient is resting in bed, A/O x2, confused, Tele monitor SR 83, showing no signs of acute distress or SOB, saturating 95% on 2L NC. IV line is clean and intact flushing well. Patient denies any pain or discomfort at this time. Bilateral soft wrist restraints in place, circulation checked, skin checked. Bed is in lowest position, side rails x2 in upright position, call light is within reach, fall saftey and aspiration precautions enforced. Will continue with plan of care.
[2020-11-08] MEDS: METFORMIN 500 MG TABLET PO SCH ×2 (08:59→16:43)
[2020-11-08] MEDS: PIOGLITAZONE HCL 15 MG TABLET PO SCH (08:59)
[2020-11-08] MEDS: POTASSIUM CHLORIDE 20 MEQ TAB.PRT.SR PO SCH (09:00)
[2020-11-08] MEDS: BENZTROPINE MESYLATE (1 MG) 1 MG TABLET PO SCH ×2 (09:00→16:43)
[2020-11-08] MEDS: ASPIRIN EC 81 MG TABLET.DR PO SCH (09:00)
[2020-11-08] MEDS: ENOXAPARIN SODIUM 40 MG/0.4 ML DISP.SYRIN SQ SCH (09:00)
[2020-11-08] MEDS: DIVALPROEX SODIUM 500 MG TABLET.DR PO SCH ×3 (09:00→16:43)
[2020-11-08] MEDS: DEXAMETHASONE SOD PHOSPHATE 10 MG/ML VIAL IV SCH (09:00)
[2020-11-08] MEDS: METOPROLOL TARTRATE 50 MG TABLET PO SCH ×2 (09:00→21:24)
[2020-11-08] MEDS: glipiZIDE 5 MG TABLET PO SCH (09:01)
[2020-11-08] MEDS: TRIHEXYPHENIDYL HCL 5 MG TABLET PO SCH (09:01)
[2020-11-08] MEDS: RAMIPRIL 1.25 MG CAPSULE PO SCH (09:02)
[2020-11-08] MEDS: Z GUARD REMEDY 2 OZ OINT TP SCH (09:13)
[2020-11-08] MEDS: MUPIROCIN OINT 2% 22 GM TUBE TP SCH ×2 (09:13→21:24)
[2020-11-08] MEDS: DOXYCYCLINE 100 MG in IV D5W 100 ML IV SCH ×2 (09:14→21:27)
--- NOTE | 2020-11-08 12:38 | NUR ---
RN NOTE Patient's POLST stated "Selective treatment: do not intubate." Notified Dr. Spencer and jhon to change code status to DNI.
--- NOTE | 2020-11-08 19:27 | NUR ---
RN CLOSING NOTE Patient is resting in bed, A/O x2, confused, Tele monitor SR 80S, showing no signs of acute distress or SOB, saturating 95% on 2L NC. IV line is clean and intact flushing well. Patient denies any pain or discomfort at this time. Bilateral soft wrist restraints in place, circulation checked, skin checked. Bed is in lowest position, side rails x2 in upright position, call light is within reach, fall safety and aspiration precautions enforced. Will endorse to bond analyst for OBEY.
--- NOTE | 2020-11-08 19:28 | NUR ---
MS RN OPENING NOTES Received patient, resting on bed. No complaints made at this time. Kept on bed clean, dry and comfortable. On fall and aspiration precautions. Will continue to monitor accordingly.
[2020-11-08] MEDS: CLOZAPINE 100 MG TABLET PO SCH (21:24)
[2020-11-08] MEDS: ATORVASTATIN 10 MG TABLET PO SCH (21:24)
[2020-11-08] MEDS: TAMSULOSIN 0.4 MG CAP.SR.24H PO SCH (21:24)
[2020-11-08] MEDS: CEFTRIAXONE 1 G in IV D5W 50 ML IV SCH (22:13)
[2020-11-09] MEDS: NITROGLYCERIN 30 GM TUBE TP SCH ×4 (06:15→18:30)
[2020-11-09] MEDS: PANTOPRAZOLE 40 MG TABLET.DR PO SCH (06:54)
[2020-11-09] MEDS: BLOOD SUGAR DIAGNOSTIC 1 EACH STRIP IN SCH ×4 (06:54→21:55)
[2020-11-09] MEDS: INSULIN REGULAR, HUMAN 100 UNIT/ML 3 ML VIAL SQ PRN ×3 (06:59→22:02)
--- NOTE | 2020-11-09 07:14 | NUR ---
MS RN CLOSING NOTE Pt asleep on bed. No new complaints made. All nursing needs attended. Kept on bed clean, dry and comfortable. Endorsed.
--- NOTE | 2020-11-09 07:35 | NUR ---
TELE/RN OPENING NOTES RECEIVED PATIENT ON BED AWAKE, ALERT AND ORIENTED X2-3. PATIENT IS ON 3 L OXYGEN VIA NASAL CANNULA, PATIENT SAO2 98 %. TELE MONITOR WAS IN PLACE READING SINUS RHYTHM 78 BPM. NO COMPLAINED OF PAIN NOTED. WILL CONTINUE TO MONITOR. Addendum: 11/09/20 at 1531 by JUANITO YANG RN ERROR
--- NOTE | 2020-11-09 07:50 | NUR ---
TELE/RN OPENING NOTES RECEIVED PATIENT ON BED AWAKE, ALERT AND ORIENTED X2 CONFUSED. PATIENT IS ON 2 L OXYGEN VIA NASAL CANNULA, PATIENT SAO2 91 %. NO COMPLAINED OF PAIN NOTED. WILL CONTINUE TO MONITOR.
[2020-11-09] MEDS: Z GUARD REMEDY 2 OZ OINT TP SCH (09:00)
[2020-11-09 09:23] VITALS: BP 130/88
[2020-11-09] MEDS: DEXAMETHASONE SOD PHOSPHATE 10 MG/ML VIAL IV SCH (09:53)
[2020-11-09] MEDS: PIOGLITAZONE HCL 15 MG TABLET PO SCH (09:54)
[2020-11-09] MEDS: ASPIRIN EC 81 MG TABLET.DR PO SCH (09:54)
[2020-11-09] MEDS: BENZTROPINE MESYLATE (1 MG) 1 MG TABLET PO SCH ×2 (09:55→16:57)
[2020-11-09] MEDS: FUROSEMIDE 40 MG/4 ML VIAL IV SCH (09:56)
[2020-11-09] MEDS: METOPROLOL TARTRATE 50 MG TABLET PO SCH ×2 (09:56→20:58)
[2020-11-09] MEDS: METFORMIN 500 MG TABLET PO SCH ×2 (09:56→16:57)
[2020-11-09] MEDS: TRIHEXYPHENIDYL HCL 5 MG TABLET PO SCH (09:57)
[2020-11-09] MEDS: RAMIPRIL 1.25 MG CAPSULE PO SCH (09:57)
[2020-11-09] MEDS: DOXYCYCLINE 100 MG in IV D5W 100 ML IV SCH ×2 (09:58→20:56)
[2020-11-09] MEDS: MUPIROCIN OINT 2% 22 GM TUBE TP SCH ×2 (09:59→21:16)
[2020-11-09] MEDS: glipiZIDE 5 MG TABLET PO SCH (09:59)
[2020-11-09] MEDS: DIVALPROEX SODIUM 500 MG TABLET.DR PO SCH ×3 (10:02→16:57)
[2020-11-09] MEDS: POTASSIUM CHLORIDE 20 MEQ TAB.PRT.SR PO SCH (10:02)
[2020-11-09] MEDS: ENOXAPARIN SODIUM 40 MG/0.4 ML DISP.SYRIN SQ SCH (10:06)
[2020-11-09 13:29] VITALS: BP 110/67
[2020-11-09 17:23] VITALS: BP 128/65
--- NOTE | 2020-11-09 17:35 | NUR ---
TELE/RN NOTES BS 48MGDL 50% DEXTROSE IV WAS GIVEN WILL CONTINUE TO MONITOR.
--- NOTE | 2020-11-09 18:45 | NUR ---
TELE/RN NOTES LATEST BS 135 MG/DL PATIENT IS COMFORTABLE, SLEEPING AND EASILY AROUSABLE.
--- NOTE | 2020-11-09 18:54 | NUR ---
TELE/RN CLOSING NOTES PATIENT IS ON BED. ALERT AND ORIENTED X2 CONFUSED. NO COMPLAINED PAIN OF NOTED AT THIS TIME. PATIENT IN NO APPARENT RESPIRATORY DISTRESS NOTED. PATIENT IS ON OXYGEN AT 2 L/MIN VIA NASAL CANNULA SAO2 93%. IV ACCESS AT RIGHT HAND # 22 G PATENT AND INTACT. SEEN AND EXAMINED BY MD WITH ORDERS MADE AND CARRIED OUT. ALL DUE MEDICATIONS WAS GIVEN. SAFETY PRECAUTIONS WAS IN PLACED. BED IN LOWEST POSITION AND LOCKED. SIDERAILS UP X 2. CALL LIGHT WITHIN REACH. WILL ENDORSED TO MAJOR LEAGUE BASEBALL PLAYER FOR OBEY.
[2020-11-09 20:00] VITALS: BP 147/83
--- NOTE | 2020-11-09 20:00 | NUR ---
RECEIVED IN BED [place] WRIST RESTRAINTS ON O2 ON NC SPEECH IS SOMEWHAT DIFFICULT TO UNDERSTAND BUT HE DID ANSWER APPRIOP
[2020-11-09] MEDS: TAMSULOSIN 0.4 MG CAP.SR.24H PO SCH (20:57)
[2020-11-09] MEDS: CLOZAPINE 100 MG TABLET PO SCH (20:58)
[2020-11-09] MEDS: ATORVASTATIN 10 MG TABLET PO SCH (20:58)
[2020-11-09] MEDS: ACETAMINOPHEN 325 MG TABLET PO PRN (21:10)
[2020-11-09] MEDS: CEFTRIAXONE 1 G in IV D5W 50 ML IV SCH (22:02)
[2020-11-10] VITALS (7 sets, daily range): BP systolic 106–139; BP diastolic 43–80
[2020-11-10] MEDS: NITROGLYCERIN 30 GM TUBE TP SCH ×4 (00:31→17:32)
--- NOTE | 2020-11-10 05:35 | NUR ---
ENDING NOTES: HE IS INCONTINENT CLEAN TWICE ,KEPT WARM AND DRY SKIN INTACT. GOOD BM. SATS 94 - 96% ON 2 LITER WHEN ASLEEP RESTRAINTS REMAIN ON D/T HE WILL TAKE OFFF THE N/C FREQ AND HE WILL DESAT INTO THE HIGH 80'S RESTRAINT ORDERS TYLENOL GIVEN PRIOR GOING TO SLEEP FOR THE NIGHT 2 TYLENOL FOR HIS DISCOMFORT HE SAID WAS IN HIS BACK TYLENOL WAS EFFECTIVE
[2020-11-10] MEDS: BLOOD SUGAR DIAGNOSTIC 1 EACH STRIP IN SCH ×4 (06:38→22:29)
[2020-11-10] MEDS: INSULIN REGULAR, HUMAN 100 UNIT/ML 3 ML VIAL SQ PRN ×4 (06:41→22:31)
--- NOTE | 2020-11-10 07:00 | NUR ---
RN NOTE PT IS A&Ox2. PT IS ADMITTED UNDER THE DIAGNOSIS OF A RIB FRACTURE, AND A FRACTURE OF THE SPINE. PT TESTS POSITIVE FOR COVID. PT HAS A HISTORY OR BIPOLAR DISORDER, DM, MS, AND HTN. NO KNOWN ALLERGIES. PT IS 2L NASAL CANNULA AND IS SATURATING AT 88%. PT IS SINUS RHYTHM. PT IS INCONTINENT. PT IS ON BEDREST. L EAR IS IS LACERATED. R FOOT I3RD TOE HAS NECROSIS. L ELBOW IS BRUISED. DIET IS CONSISTENT CARB. 22 G SALINE LOCK PRESENT IN THE R HAND. BED SET IN LOWEST POSITION, BED RAILS UP. CALL LIGHT IN THE LOWEST POSITION. WILL CONTINUE TO MONITOR.
[2020-11-10] MEDS: BENZTROPINE MESYLATE (1 MG) 1 MG TABLET PO SCH ×2 (08:44→16:57)
[2020-11-10] MEDS: DEXAMETHASONE SOD PHOSPHATE 10 MG/ML VIAL IV SCH (08:45)
[2020-11-10] MEDS: MUPIROCIN OINT 2% 22 GM TUBE TP SCH ×2 (08:45→21:47)
[2020-11-10] MEDS: ASPIRIN EC 81 MG TABLET.DR PO SCH (08:45)
[2020-11-10] MEDS: RAMIPRIL 1.25 MG CAPSULE PO SCH (08:46)
[2020-11-10] MEDS: DIVALPROEX SODIUM 500 MG TABLET.DR PO SCH ×3 (08:46→16:57)
[2020-11-10] MEDS: glipiZIDE 5 MG TABLET PO SCH (08:46)
[2020-11-10] MEDS: PANTOPRAZOLE 40 MG TABLET.DR PO SCH (08:46)
[2020-11-10] MEDS: TRIHEXYPHENIDYL HCL 5 MG TABLET PO SCH (08:46)
[2020-11-10] MEDS: POTASSIUM CHLORIDE 20 MEQ TAB.PRT.SR PO SCH (08:53)
[2020-11-10] MEDS: METFORMIN 500 MG TABLET PO SCH ×2 (08:53→16:57)
[2020-11-10] MEDS: FUROSEMIDE 40 MG/4 ML VIAL IV SCH (08:53)
[2020-11-10] MEDS: METOPROLOL TARTRATE 50 MG TABLET PO SCH ×2 (08:53→21:46)
[2020-11-10] MEDS: PIOGLITAZONE HCL 15 MG TABLET PO SCH (08:53)
[2020-11-10] MEDS: Z GUARD REMEDY 2 OZ OINT TP SCH (08:54)
[2020-11-10] MEDS: DOXYCYCLINE 100 MG in IV D5W 100 ML IV SCH ×2 (08:54→21:46)
[2020-11-10] MEDS: ENOXAPARIN SODIUM 40 MG/0.4 ML DISP.SYRIN SQ SCH (09:40)
[2020-11-10] MEDS ORDERED: DEXA6TAB6 PO (11:48)
--- NOTE | 2020-11-10 12:26 | NUR ---
LITHOGRAPHIC PRINTING MACHINIST NOTES PT IN BED, ASLEEP, AROUSABLE, VERBALLY RESPONSIVE, SLEEPY, NOTED WITH O2 SAT OF 88% ON N/C, ADJUSTED O2 TO 5LPM, O2 SAT IMPROVED TO 90%, PLACED PT ON MASK WITH 7LPM, O2 IMPROVED TO 94%, DR. GUO INFORMED, ORDERED LASIX AND CXR, PER MD HOLD DISCHARGE, DR. HESS INFORMED.
[2020-11-10] MEDS ORDERED: FUROSEMIDE 40 MG/4 ML VIAL IV ONE (12:30)
--- NOTE | 2020-11-10 18:21 | NUR ---
SPACE SYSTEMS OPERATIONS CRAFTSMAN NOTES PT IN BED, SLEEPS INTERMITTENTLY, WITH CONFUSION, NO CHANGE IN LOC, ON 7LPM VIA MASK, O2 SAT OF 89-90%, PLACED ON NON REBREATHER MASK AT 15LPM, O2 SAT IMPROVED TO 92-94%, DR. HESS AWARE, NO ORDER GIVEN AT THIS TIME, KEPT HOB ELEVATED, PM MEDS GIVEN, ASSISTED WITH DINNER, PM CARE PROVIDED.
--- NOTE | 2020-11-10 19:30 | NUR ---
MS/RN OPENING NOTES RECEIVED PATIENT IN BED RESTING. PATIENT IS ALERT AND ORIENTED X 1-2. PATIENT IN NO SIGNS OF SOB OR RESPIRATORY DISTRESS NOTED.BREATHING IS EVEN AND UNLABORED. PATIENT HAS BILATERAL SOFT WRIST RESTRAINTS IN PLACE, CIRCULATION IS GOOD. PATIENT HAS RIGHT HAND IV #22G IN PLACE INTACT. SAFETY MEASURES ARE IN PLACE, BED IS LOCKED AND PLACED IN THE LOW POSITION, SIDE RAILS UP X 3, CALL LIGHT IS WITHIN REACH. WILL CONTINUE TO MONITOR THROUGH OUT SHIFT.
[2020-11-10] MEDS: CLOZAPINE 100 MG TABLET PO SCH (21:47)
[2020-11-10] MEDS: TAMSULOSIN 0.4 MG CAP.SR.24H PO SCH (21:47)
[2020-11-10] MEDS: ATORVASTATIN 10 MG TABLET PO SCH (21:47)
[2020-11-10] MEDS: CEFTRIAXONE 1 G in IV D5W 50 ML IV SCH (22:29)
[2020-11-11] VITALS: BP 134/72
[2020-11-11] MEDS: NITROGLYCERIN 30 GM TUBE TP SCH ×4 (00:43→18:40)
[2020-11-11 04:00] VITALS: BP 128/75
[2020-11-11] MEDS: BLOOD SUGAR DIAGNOSTIC 1 EACH STRIP IN SCH ×4 (06:31→22:37)
--- NOTE | 2020-11-11 06:45 | NUR ---
MS/RN CLOSING NOTES PATIENT IN BED SLEEPING EASY TO AROUSE. PATIENT IS ALERT AND ORIENTED X 1-2. PATIENT IN NO SIGNS OF SOB OR RESPIRATORY DISTRESS NOTED.BREATHING IS EVEN AND UNLABORED. PATIENT HAS BILATERAL SOFT WRIST RESTRAINTS IN PLACE, CIRCULATION IS GOOD. PATIENT HAS RIGHT HAND IV #22G IN PLACE INTACT. ALL NEED MET DURING SHIFT. SAFETY MEASURES ARE IN PLACE, BED IS LOCKED AND PLACED IN THE LOW POSITION, SIDE RAILS UP X 3, CALL LIGHT IS WITHIN REACH. WILL ENDORSE CARE TO DAY SHIFT NURSE.
[2020-11-11] MEDS: INSULIN REGULAR, HUMAN 100 UNIT/ML 3 ML VIAL SQ PRN ×4 (07:07→22:39)
[2020-11-11 08:00] VITALS: BP 144/74
[2020-11-11] MEDS: DEXAMETHASONE SOD PHOSPHATE 10 MG/ML VIAL IV SCH (08:14)
[2020-11-11] MEDS: PIOGLITAZONE HCL 15 MG TABLET PO SCH (08:14)
[2020-11-11] MEDS: DIVALPROEX SODIUM 500 MG TABLET.DR PO SCH ×3 (08:14→17:51)
[2020-11-11] MEDS: PANTOPRAZOLE 40 MG TABLET.DR PO SCH (08:14)
[2020-11-11] MEDS: FUROSEMIDE 40 MG/4 ML VIAL IV SCH ×2 (08:14→17:51)
[2020-11-11] MEDS: METFORMIN 500 MG TABLET PO SCH ×2 (08:15→17:51)
[2020-11-11] MEDS: POTASSIUM CHLORIDE 20 MEQ TAB.PRT.SR PO SCH (08:15)
[2020-11-11] MEDS: ASPIRIN EC 81 MG TABLET.DR PO SCH (08:15)
[2020-11-11] MEDS: BENZTROPINE MESYLATE (1 MG) 1 MG TABLET PO SCH ×2 (08:15→17:51)
[2020-11-11] MEDS: ENOXAPARIN SODIUM 40 MG/0.4 ML DISP.SYRIN SQ SCH (08:16)
[2020-11-11] MEDS: DOXYCYCLINE 100 MG in IV D5W 100 ML IV SCH ×2 (08:17→21:50)
[2020-11-11] MEDS: glipiZIDE 5 MG TABLET PO SCH (08:17)
[2020-11-11] MEDS: TRIHEXYPHENIDYL HCL 5 MG TABLET PO SCH (08:18)
[2020-11-11] MEDS: METOPROLOL TARTRATE 50 MG TABLET PO SCH ×2 (08:19→21:49)
[2020-11-11] MEDS: RAMIPRIL 1.25 MG CAPSULE PO SCH (08:20)
[2020-11-11] MEDS: Z GUARD REMEDY 2 OZ OINT TP SCH (08:21)
[2020-11-11 12:00] VITALS: BP 114/65
[2020-11-11 13:41] LABS: ABG BASE EXCESS 8.2 mmol/L; ABG OXYGEN SATURATION 91.5 % (92.0-98.5); ABG PCO2 55.6 mmHg (35.0-45.0); ABG PH 7.413 (7.350-7.450); ABG PO2 63.4 mmHg (75.0-100.0); AaDO2 448.6 mmHg; COHb 0.5 % (0.5-1.5); MetHb 0.2 % (0.0-1.5); O2Hb 90.9 % (94.0-97.0); SITE, ABG Right Radial; VENT MODE, BG NRB
--- NOTE | 2020-11-11 13:45 | NUR ---
RN NOTES DR. HESS MADE AWARE OF PATIENTS ABG RESULTS NO NEW ORDERS GIVEN. CONTINUE TO MONITOR. PATIENT ON 15L VIA NONREBREATHER. WILL CONTINUE TO MONITOR.
[2020-11-11 16:00] VITALS: BP 138/75
--- NOTE | 2020-11-11 18:46 | NUR ---
RN NOTES PATIENT IN BED RESTING. NO SOB OR ACUTE DISTRESS NOTED. PATIENT ON NONE REBREATHER 15L SATURATING ABOVE 95%. ALL DUE MEDICATIONS ADMINISTERED. ALL NEEDS MET. WILL ENDORSE CARE TO PM SHIFT.
[2020-11-11 20:00] VITALS: BP_SYST 123; BP_SYST 142; BP_DIAS 70; BP_DIAS 96
--- NOTE | 2020-11-11 20:00 | NUR ---
RN OPENING NOTE: Patient in bed resting comfortably. Patient shows no signs of respiratory distress or SOB. Breathing even and unlabored. Noted bilateral soft restraints. Circulation and skin is WNL. Noted IV access on right hand, 22 gauge, intact and patent. Safety measure is in place, bed is in the lowest level, bed is locked, alarm is on, side rails x2 are up, and call light is within reach. Will continue to monitor.
[2020-11-11] MEDS: ATORVASTATIN 10 MG TABLET PO SCH (21:49)
[2020-11-11] MEDS: TAMSULOSIN 0.4 MG CAP.SR.24H PO SCH (21:49)
[2020-11-11] MEDS: CLOZAPINE 100 MG TABLET PO SCH (21:49)
[2020-11-11] MEDS: CEFTRIAXONE 1 G in IV D5W 50 ML IV SCH (21:50)
[2020-11-12] VITALS: BP_SYST 127; BP_SYST 140; BP_DIAS 74; BP_DIAS 77
[2020-11-12] MEDS: NITROGLYCERIN 30 GM TUBE TP SCH ×4 (00:33→17:54)
[2020-11-12 05:17] VITALS: BP 128/75
[2020-11-12] MEDS: BLOOD SUGAR DIAGNOSTIC 1 EACH STRIP IN SCH ×4 (06:40→21:41)
[2020-11-12] MEDS: INSULIN REGULAR, HUMAN 100 UNIT/ML 3 ML VIAL SQ PRN ×3 (06:40→22:02)
[2020-11-12 06:46] LABS: BASOPHILS % (AUTO) 0.1 % (0.0-2.0); HEMATOCRIT 44 % (39-51); HEMOGLOBIN 14.7 g/dL (13.5-17.5); LYMPHOCYTES # (AUTO) 0.4 /CMM (0.8-4.8); LYMPHOCYTES % (AUTO) 8.2 % (20.0-44.0); MEAN CORPUSCULAR HGB CONC 34 g/dl (31.0-36.0); MEAN CORPUSCULAR VOLUME 98 fL (80-96); MONOCYTES # (AUTO) 0.6 /CMM (0.1-1.30); MONOCYTES % (AUTO) 11.4 % (2.0-12.0); NEUTROPHILS # (AUTO) 4.1 /CMM (1.8-8.9); NEUTROPHILS % (AUTO) 80.3 % (43.0-81.0); PLATELET COUNT (AUTO) 153 /CMM (150-450); RED BLOOD CELL COUNT(AUTO) 4.43 MIL/uL (4.5-6.0); WHITE BLOOD COUNT (AUTO) 5.1 K/uL (4.3-11.0)
[2020-11-12 06:56] LABS: CALCIUM, SERUM 9.3 mg/dL (8.5-10.1); MAGNESIUM 2.1 mg/dL (1.8-2.4); POTASSIUM 4.3 mmol/L (3.5-5.1)
[2020-11-12 08:00] VITALS: BP 113/83
[2020-11-12] MEDS: PANTOPRAZOLE 40 MG TABLET.DR PO SCH (08:23)
--- NOTE | 2020-11-12 08:33 | NUR ---
RN CLOSING NOTE: Patient in bed resting comfortably. Patient breathing even and unlabored, no SOB or acute respiratory distress noted. Safety measure is maintained, bed is in the lowest level, bed is locked, alarm is on, side rails x2 are up, and call light is within reach. Endorsed to morning RN.
[2020-11-12] MEDS: DEXAMETHASONE SOD PHOSPHATE 10 MG/ML VIAL IV SCH (08:49)
[2020-11-12] MEDS: METFORMIN 500 MG TABLET PO SCH ×2 (08:50→17:54)
[2020-11-12] MEDS: DIVALPROEX SODIUM 500 MG TABLET.DR PO SCH ×3 (08:50→17:53)
[2020-11-12] MEDS: glipiZIDE 5 MG TABLET PO SCH (08:50)
[2020-11-12] MEDS: ASPIRIN EC 81 MG TABLET.DR PO SCH (08:50)
[2020-11-12] MEDS: RAMIPRIL 1.25 MG CAPSULE PO SCH (08:50)
[2020-11-12] MEDS: PIOGLITAZONE HCL 15 MG TABLET PO SCH (08:50)
[2020-11-12] MEDS: METOPROLOL TARTRATE 50 MG TABLET PO SCH ×2 (08:51→21:41)
[2020-11-12] MEDS: BENZTROPINE MESYLATE (1 MG) 1 MG TABLET PO SCH ×2 (08:53→17:54)
[2020-11-12] MEDS: POTASSIUM CHLORIDE 20 MEQ TAB.PRT.SR PO SCH (08:53)
[2020-11-12] MEDS: FUROSEMIDE 40 MG/4 ML VIAL IV SCH (08:53)
[2020-11-12] MEDS: TRIHEXYPHENIDYL HCL 5 MG TABLET PO SCH (08:53)
[2020-11-12] MEDS: ENOXAPARIN SODIUM 40 MG/0.4 ML DISP.SYRIN SQ SCH (08:56)
[2020-11-12] MEDS: Z GUARD REMEDY 2 OZ OINT TP SCH (08:57)
[2020-11-12] MEDS ORDERED: FUROSEMIDE 40 MG/4 ML VIAL IV SCH (09:30)
--- NOTE | 2020-11-12 11:19 | NUR ---
RN NOTES PATIENT WITH ORDER FOR LASIX 40 MG, INFORMED DR. PIZANO THAT PATIENT ALREADY RECEIVED LASIX 40 MG SCHEDULED. PER MD LASIX 40 MG DAILY ONLY AND NO ADDITIONAL LASIX NEEDED.
--- NOTE | 2020-11-12 13:00 | NUR ---
RN NOTES HELD INSULIN PATIENT REFUSED LUNCH.
[2020-11-12 13:43] LABS: ABG BASE EXCESS 7.7 mmol/L; ABG OXYGEN SATURATION 92.1 % (92.0-98.5); ABG PH 7.459 (7.350-7.450); ABG PO2 63.4 mmHg (75.0-100.0); AaDO2 602.6 mmHg; COHb 0.3 % (0.5-1.5); MetHb 0.3 % (0.0-1.5); O2Hb 91.5 % (94.0-97.0); SITE, ABG Right Radial; VENT MODE, BG NRB
[2020-11-12 16:00] VITALS: BP 105/72
--- NOTE | 2020-11-12 19:15 | NUR ---
SENIOR EXAMINER NOTES PATIENT RESTING COMFORTABLY IN BED, SINGING. HOB ELEVATED. DENIES ANY C/O PAIN NOR DISCOMFORT. NO S/S OF RESPIRATORY DISTRESS. REMAIN ON NON REBREATHER MASK AT 15L/MIN WITH SPO2 92%. RIGHT FA SL # 22 INTACT AND PATENT. BILATERAL WRIST RESTRAINT IN PLACE WITH SKIN CIRCULATION CHECK AND DONE. BED IN LOWEST POSITION ,LOCKED. BED ALARM ON.CALL LIGHT WITHIN REACH. ABLE TO VERBALIZE NEEDS. IN NO APPARENT DISTRESS.
--- NOTE | 2020-11-12 19:49 | NUR ---
RN OPENING NOTE: Patient in bed sleeping comfortably. Patient breathing even and unlabored on 15L/min Oxygen, non-rebreather mask; MD aware. Noted IV access on left forearm, intact and patent. Safety measure in place, bed is in the lowest level, bed is locked, alarm is on, side rails x2 are up, and call light is within reach. Will continue to monitor
[2020-11-12 20:00] VITALS: BP 134/85
[2020-11-12] MEDS: CLOZAPINE 100 MG TABLET PO SCH (21:40)
[2020-11-12] MEDS: TAMSULOSIN 0.4 MG CAP.SR.24H PO SCH (21:40)
[2020-11-12] MEDS: ATORVASTATIN 10 MG TABLET PO SCH (21:40)
[2020-11-13 00:51] VITALS: BP 99/54
[2020-11-13 05:22] VITALS: BP 109/75
[2020-11-13] MEDS: NITROGLYCERIN 30 GM TUBE TP SCH ×4 (05:23→18:59)
[2020-11-13 05:59] LABS: BASOPHILS % (AUTO) 0.1 % (0.0-2.0); HEMATOCRIT 43 % (39-51); HEMOGLOBIN 14.3 g/dL (13.5-17.5); LYMPHOCYTES # (AUTO) 0.5 /CMM (0.8-4.8); LYMPHOCYTES % (AUTO) 8.3 % (20.0-44.0); MEAN CORPUSCULAR HGB CONC 33 g/dl (31.0-36.0); MEAN CORPUSCULAR VOLUME 99 fL (80-96); MONOCYTES # (AUTO) 0.6 /CMM (0.1-1.30); MONOCYTES % (AUTO) 9.3 % (2.0-12.0); NEUTROPHILS # (AUTO) 5.3 /CMM (1.8-8.9); NEUTROPHILS % (AUTO) 82.3 % (43.0-81.0); PLATELET COUNT (AUTO) 184 /CMM (150-450); RED BLOOD CELL COUNT(AUTO) 4.37 MIL/uL (4.5-6.0); WHITE BLOOD COUNT (AUTO) 6.4 K/uL (4.3-11.0)
[2020-11-13 06:23] LABS: ALBUMIN 2.3 g/dL (3.4-5.0); BILIRUBIN,TOTAL 0.3 mg/dL (0.2-1.0); CALCIUM, SERUM 9.8 mg/dL (8.5-10.1); CREATININE 1.6 mg/dL (0.6-1.3); MAGNESIUM 2.4 mg/dL (1.8-2.4); PHOSPHORUS 5.7 mg/dL (2.5-4.9); POTASSIUM 4.7 mmol/L (3.5-5.1); TOTAL PROTEIN, SERUM 7.1 g/dL (6.4-8.2)
[2020-11-13] MEDS: PANTOPRAZOLE 40 MG TABLET.DR PO SCH (06:45)
[2020-11-13] MEDS: INSULIN REGULAR, HUMAN 100 UNIT/ML 3 ML VIAL SQ PRN ×5 (06:47→17:35)
--- NOTE | 2020-11-13 07:52 | NUR ---
Assessed patients bilateral extremity for circulation and skin every 2 hours. Circulation and skin are WNL. Ensured patient is hydrated and needs taken care of.
--- NOTE | 2020-11-13 07:55 | NUR ---
RN CLOSING NOTE: Patient resting in bed comfortably. Patient is breathing even and unlabored. No SOB or acute respiratory distress noted. Safety measure maintained; bed is in the lowest level, bed is locked, alarm is on, side rails x2 are up, and call light is within reach. Endorsed to AM nurse.
[2020-11-13 08:00] VITALS: BP 134/85
[2020-11-13] MEDS: BLOOD SUGAR DIAGNOSTIC 1 EACH STRIP IN SCH ×4 (08:38→21:52)
[2020-11-13] MEDS: ASPIRIN EC 81 MG TABLET.DR PO SCH (08:42)
[2020-11-13] MEDS: glipiZIDE 5 MG TABLET PO SCH (08:42)
[2020-11-13] MEDS: BENZTROPINE MESYLATE (1 MG) 1 MG TABLET PO SCH ×2 (08:42→17:00)
[2020-11-13] MEDS: METOPROLOL TARTRATE 50 MG TABLET PO SCH ×2 (08:43→21:00)
[2020-11-13] MEDS: PIOGLITAZONE HCL 15 MG TABLET PO SCH (08:43)
[2020-11-13] MEDS: TRIHEXYPHENIDYL HCL 5 MG TABLET PO SCH (08:43)
[2020-11-13] MEDS: DIVALPROEX SODIUM 500 MG TABLET.DR PO SCH ×3 (08:43→17:00)
[2020-11-13] MEDS: DEXAMETHASONE SOD PHOSPHATE 10 MG/ML VIAL IV SCH (08:43)
[2020-11-13] MEDS: ENOXAPARIN SODIUM 40 MG/0.4 ML DISP.SYRIN SQ SCH (08:45)
[2020-11-13] MEDS: Z GUARD REMEDY 2 OZ OINT TP SCH (08:46)
--- NOTE | 2020-11-13 13:00 | NUR ---
RN NOTES HELD INSULIN DUE TO PATIENT UNABLE TO FOLLOW COMMANDS AND REFUSED LUNCH. ASLEEP, BUT AROUSBALE TO VERBAL AND TACTILE STIMULI.
--- NOTE | 2020-11-13 13:45 | NUR ---
RN NOTES NOTED PATIENT LETHARGIC WITH ON AND OFF RESPONSIVENESS. REMAIN ON 15L/MIN NON REBREATHER MASK. RESPONSIVE TO VERBAL AND TACTILE STIMULI. CURRENT VITALS: 90-92% SPO2; HR: 90; B/P 108/72; RR: 19. WHEN QUESTIONED PATIENT ABOUT BEING IN PAIN, PATIENT NODDED, "NO." WILL CONTINUE TO MONITOR. FREQUENT VISUAL CHECK DONE.
[2020-11-13] MEDS ORDERED: IV D5W 1,000 ML IV PRN (14:00)
[2020-11-13 16:00] VITALS: BP 135/68
[2020-11-13 18:20] LABS: C-REACTIVE PROTEIN 12.8 mg/dL (0.0-0.9)
--- NOTE | 2020-11-13 19:00 | NUR ---
TUBE BACKER NOTES OBSERVED PATIENT SINGING DURING VISUAL CHECK.
--- NOTE | 2020-11-13 19:30 | NUR ---
REGULATORY MANAGER NOTES PATIENT RESTING COMFORTABLY IN BED. HOB ELEVATED. DENIES ANY C/O PAIN NOR DISCOMFORT. REMAIN ON NON REBREATHER MASK AT 15L/MIN WITH SPO2 90-92%%. RIGHT FA SL # 22 INTACT AND PATENT. BILATERAL WRIST RESTRAINT IN PLACE WITH SKIN CIRCULATION CHECK AND DONE. BED IN LOWEST POSITION ,LOCKED. BED ALARM ON.CALL LIGHT WITHIN REACH. IN NO APPARENT DISTRESS.
[2020-11-13 20:00] VITALS: BP 139/90
[2020-11-13] MEDS ORDERED: ZOSYN IVPB 3.375 G in IV D5W 50ml IV SCH (20:00)
--- NOTE | 2020-11-13 20:43 | NUR ---
RN OPENING NOTES PATIENT RECEIVED RESTING IN BED, LETHARGIC BUT RESPONSIVE TO VERBAL AND TACTILE STIMULI. ON NON REBREATHER MASK 15L. NO SIGNS OF ACUTE DISTRESS. NO SIGNS OF PAIN OR DISCOMFORT. BILATERAL SOFT WRIST RESTRAINTS IN PLACE WITH NO REDNESS, PULSE PRESENT. PATIENT REMAINING NPO. IV LOCATED ON R WRIST #24 PATENT AND INTACT. SAFETY PRECAUTIONS IN PLACE WITH BED IN LOWEST POSITION, CALL LIGHT WITHIN REACH, BREAKS ON, SIDE RAILS UP.
[2020-11-13] MEDS ORDERED: PIPERACILLIN /TAZOBACTAM 2.25 G in IV D5W 50 ML IV SCH (21:00)
[2020-11-13] MEDS: CLOZAPINE 100 MG TABLET PO SCH (21:06)
[2020-11-13] MEDS: TAMSULOSIN 0.4 MG CAP.SR.24H PO SCH (21:09)
[2020-11-13] MEDS: ATORVASTATIN 10 MG TABLET PO SCH (21:10)
--- NOTE | 2020-11-13 22:00 | NUR ---
HELD INSULIN DUE TO PATIENT NPO, UNABLE TO FOLLOW COMMANDS, LETHARGIC BUT AROUSABLE
[2020-11-14] VITALS: BP 108/77
[2020-11-14] MEDS: NITROGLYCERIN 30 GM TUBE TP SCH ×6 (00:48→23:37)
--- NOTE | 2020-11-14 03:09 | NUR ---
PATIENT REMAINS LETHARGIC, RESPONSIVE TO NAME AND TOUCH. ON 15L OF O2 NONREBREATHER MASK SPO2 88%. PATIENT ABLE TO NOD "NO" WHEN ASKED IF IN PAIN.
[2020-11-14 04:00] VITALS: BP 128/81
[2020-11-14] MEDS: PIPERACILLIN /TAZOBACTAM 3.375 G in IV D5W 100 ML IV SCH ×3 (04:18→20:45)
[2020-11-14] MEDS: BLOOD SUGAR DIAGNOSTIC 1 EACH STRIP IN SCH ×4 (06:47→22:45)
--- NOTE | 2020-11-14 06:49 | NUR ---
HELD INSULIN DUE TO PATIENT NPO. PATIENT AROUSABLE TO VERBAL AND TACTILE STIMULI. NOT RESPONSIVE EARLIER IN THE NIGHT.
--- NOTE | 2020-11-14 06:53 | NUR ---
RN CLOSING NOTES PATIENT RESTING IN BED, LETHARGIC BUT RESPONSIVE TO VERBAL AND TACTILE STIMULI. ON NON REBREATHER MASK 15L, HOB ELEVATED. NO SIGNS OF ACUTE DISTRESS. NO SIGNS OF PAIN OR DISCOMFORT. BILATERAL SOFT WRIST RESTRAINTS IN PLACE WITH NO REDNESS, PULSE PRESENT. PATIENT REMAINED NPO THROUGHOUT THE NIGHT. IV LOCATED ON R FA #22 PATENT AND INTACT. SAFETY PRECAUTIONS IN PLACE WITH BED IN LOWEST POSITION, CALL LIGHT WITHIN REACH, BREAKS ON, SIDE RAILS UP. ALL NEEDS ATTENDED TO. PATIENT KEPT CLEAN AND DRY. WILL ENDORSE TO ONCOMING SHIFT ABOUT OBEY.
[2020-11-14] MEDS: PANTOPRAZOLE 40 MG TABLET.DR PO SCH (07:30)
--- NOTE | 2020-11-14 07:45 | NUR ---
TELE/RN OPENING NOTES RECEIVED PATIENT ON BED. NO APPARENT RESPIRATORY DISTRESS NOTED. ON NON REBREATHER MASK AT 15L OXYGEN SATURATION 87%. NO SIGN AND SYMPTOM OF PAIN NOTED AT THIS TIME. WILL CONTINUE TO MONITOR.
[2020-11-14 08:00] VITALS: BP 125/96
[2020-11-14 08:18] LABS: BASOPHILS % (AUTO) 0.1 % (0.0-2.0); HEMATOCRIT 46 % (39-51); HEMOGLOBIN 15.2 g/dL (13.5-17.5); LYMPHOCYTES # (AUTO) 0.4 /CMM (0.8-4.8); LYMPHOCYTES % (AUTO) 4.3 % (20.0-44.0); MEAN CORPUSCULAR HGB CONC 33 g/dl (31.0-36.0); MEAN CORPUSCULAR VOLUME 100 fL (80-96); MONOCYTES # (AUTO) 0.8 /CMM (0.1-1.30); MONOCYTES % (AUTO) 8.6 % (2.0-12.0); NEUTROPHILS # (AUTO) 8.1 /CMM (1.8-8.9); PLATELET COUNT (AUTO) 221 /CMM (150-450); RED BLOOD CELL COUNT(AUTO) 4.66 MIL/uL (4.5-6.0); WHITE BLOOD COUNT (AUTO) 9.3 K/uL (4.3-11.0)
[2020-11-14 08:29] LABS: ALBUMIN 2.3 g/dL (3.4-5.0); BILIRUBIN,TOTAL 0.4 mg/dL (0.2-1.0); CALCIUM, SERUM 9.5 mg/dL (8.5-10.1); CREATININE 1.6 mg/dL (0.6-1.3); MAGNESIUM 2.7 mg/dL (1.8-2.4); PHOSPHORUS 4.8 mg/dL (2.5-4.9); POTASSIUM 4.7 mmol/L (3.5-5.1); TOTAL PROTEIN, SERUM 7.4 g/dL (6.4-8.2)
[2020-11-14] MEDS: DIVALPROEX SODIUM 500 MG TABLET.DR PO SCH ×3 (09:00→17:00)
[2020-11-14] MEDS: Z GUARD REMEDY 2 OZ OINT TP SCH (09:00)
[2020-11-14] MEDS: ASPIRIN EC 81 MG TABLET.DR PO SCH (09:00)
[2020-11-14] MEDS: TRIHEXYPHENIDYL HCL 5 MG TABLET PO SCH (09:00)
[2020-11-14] MEDS: BENZTROPINE MESYLATE (1 MG) 1 MG TABLET PO SCH ×2 (09:00→17:00)
[2020-11-14] MEDS: DEXAMETHASONE SOD PHOSPHATE 10 MG/ML VIAL IV SCH (09:00)
[2020-11-14] MEDS: ENOXAPARIN SODIUM 40 MG/0.4 ML DISP.SYRIN SQ SCH (09:00)
[2020-11-14] MEDS: METOPROLOL TARTRATE 50 MG TABLET PO SCH ×2 (09:00→21:00)
--- NOTE | 2020-11-14 09:41 | NUR ---
TELE/RN NOTES ORDER ABG STAT. NOTED AND CARRIED OUT.
[2020-11-14] MEDS: INSULIN REGULAR, HUMAN 100 UNIT/ML 3 ML VIAL SQ PRN ×2 (11:57→17:47)
[2020-11-14 12:34] LABS: ABG BASE EXCESS 5.5 mmol/L; ABG OXYGEN SATURATION 86.2 % (92.0-98.5); ABG PCO2 52.3 mmHg (35.0-45.0); ABG PH 7.401 (7.350-7.450); ABG PO2 51.7 mmHg (75.0-100.0); COHb 0.4 % (0.5-1.5); MetHb 0.2 % (0.0-1.5); O2Hb 85.7 % (94.0-97.0); SITE, ABG Right Radial; VENT MODE, BG non rebreather
--- NOTE | 2020-11-14 13:19 | NUR ---
TELE/RN NOTES PATIENT WITH SIGN AND SYMPTOM OF PAIN NOTED, FACIAL GRIMACE AND RESTLESSNESS. MORPHINE 2MG IV WAS GIVEN. WILL CONTINUE TO MONITOR.
[2020-11-14 16:00] VITALS: BP 148/106
--- NOTE | 2020-11-14 20:00 | NUR ---
MAC DEVELOPER NOTE: PATIENT RESTING IN BED, NO ACUTE DISTRESS NOTED. BREATHING LABORED AND ON NONREBREATHER IN PLACE, O2 SAT LOW 90%. HOB ELEVATED. IV TO RIGHT HAND IN PLACE. BILATERAL SOFT WRIST RESTRAINTS IN PLACE. BED LOCKED AND IN LOWEST POSITION, CALL LIGHT IN REACH. WILL CONTINUE TO MONITOR.
--- NOTE | 2020-11-14 20:26 | NUR ---
RN CLOSING NOTES PATIENT RESTING IN BED, LETHARGIC BUT RESPONSIVE TO VERBAL AND TACTILE STIMULI. ON NON REBREATHER MASK 15L, HOB ELEVATED. NO SIGNS OF ACUTE DISTRESS. NO SIGNS OF PAIN OR DISCOMFORT. BILATERAL SOFT WRIST RESTRAINTS IN PLACE WITH NO REDNESS, PULSE PRESENT. SAFETY PRECAUTIONS IN PLACE WITH BED IN LOWEST POSITION, CALL LIGHT WITHIN REACH, BREAKS ON, SIDE RAILS UP. ALL NEEDS ATTENDED TO. PATIENT KEPT CLEAN AND DRY. WILL ENDORSED TO CORNER TRIMMER OPERATOR FOR OBEY.
[2020-11-14] MEDS: CLOZAPINE 100 MG TABLET PO SCH (21:52)
[2020-11-14] MEDS: ATORVASTATIN 10 MG TABLET PO SCH (21:53)
[2020-11-14] MEDS: TAMSULOSIN 0.4 MG CAP.SR.24H PO SCH (21:53)
[2020-11-14 23:37] VITALS: BP 75/46
--- NOTE | 2020-11-15 | NUR ---
DIRECTOR REACTOR PROJECTS NOTE: PATIENT NOTED THAT O2 SAT RANGING FROM 70 TO LOW 90, INFORMED MD AND RECEIVED ORDER FOR HIGH FLOW NASAL CANNULA. ORDER NOTED AND CARRIED OUT, RT INFORMED.
--- NOTE | 2020-11-15 00:56 | NUR ---
RT RN CALLED FOR HFNC TO BE PLACED ON PATIENT. PATIENT SATURATION 68% ON NRB. HFNC IN PLACE WITH 60LPM 100% FI02 WITH NRB [address]. PATIENT SATURATION IS 75% WITH HR 84. PATIENT IS DNI/DNR. RN INFORMED OF SETTINGS AND SATURATION. WILL CONTINUE TO MONITOR. HFNC PLUGGED INTO RED OUTLET.
--- NOTE | 2020-11-15 02:00 | NUR ---
BUS ATTENDANT NOTE: PATIENT O2 SAT CONTINUES TO BE IN 70'S WITH HIGH FLOW NASAL CANNULA, PATIENT'S BLOOD PRESSURE ALSO DECREASE TO 75/46, HR IN 80'S. INFORMED TICKET SELLER MD, RECEIVED ORDER FOR BOLUS NS 500ML IV ONCE. ALSO TRIED TO CONTACT ADITHYA FRANCE AT [phone], LEFT MESSAGE TO CALL BACK TO HOSPITAL. WILL CONTINUE TO MONITOR.
[2020-11-15] MEDS ORDERED: DEXAMETHASONE SOD PHOSPHATE 10 MG/ML VIAL IV STA (02:31)
[2020-11-15] MEDS ORDERED: IV NS 0.9% 500 ML IV ONE (03:00)
--- NOTE | 2020-11-15 03:00 | NUR ---
MANUFACTURING DESIGN ENGINEER NOTE: PATIENT NOTED BARELY BREATHING LESS THAN 5 BREATHS PER MINUTE. ABLE TO STILL FEEL A PULSE. INFORMED BARKER OPERATOR MD THAT PATIENT IS DECLINING. WILL CONTINUE TO MONITOR.
--- NOTE | 2020-11-15 05:30 | NUR ---
HIGHWAY LANDSCAPE ARCHITECT NOTE: PATIENT AT 0345, PATIENT NOTED BREATHING AND NO PULSE, VERIFIED WITH SECOND RN, OZZIE.. INFORMED EQUIPMENT MAINTENANCE ENGINEER MD THAT PATIENT . CALLED [facility], BODY RELEASED, NOT A CORONERS CASE. REFERENCE NUMBER [id number]. [facility] AT [phone], ARRANGED FOR PATIENT TO BE PICKED UP LATER IN THE DAY. CALLED AGAIN PATIENT INESSA HAJI AND LEFT MESSAGE TO CALL BACK TO HOSPITAL.
--- NOTE | 2020-11-15 06:00 | NUR ---
SEAFOOD TEAM MEMBER NOTE: PATIENT TRANSPORTED TO OUTSIDE TRAILER WITH 2 SECURITY GUARDS, BELONGINGS WITH PATIENT BODY. PATIENT CHART GIVEN TO NURSING SKIVER OPERATOR.
== END 2020-11-15 03:45 | disposition expired | DRG 871 ==
LOC: ER 09:05 → TELE2 15:39 → TELE-TD 11-11 00:05 → TELE2 11-11 00:43 → MEDSG2 11-12 01:33 → TELE2 11-13 10:03
PROVIDERS: ADMIT Legal Medicine; ATTEND Legal Medicine
PROC: 09Q1XZZ Repair Left External Ear, External Approach (ICD-10-PCS; principal; 2020-11-03)
DX: A41.89 Other specified sepsis (principal); U07.1 COVID-19; J96.01 Acute respiratory failure with hypoxia; J12.89 Other viral pneumonia; I21.A1 Myocardial infarction type 2; G93.41 Metabolic encephalopathy; N17.0 Acute kidney failure with tubular necrosis; J15.9 Unspecified bacterial pneumonia; S32.029A Unspecified fracture of second lumbar vertebra, initial encounter for closed fracture; S22.41XA Multiple fractures of ribs, right side, initial encounter for closed fracture; S32.039A Unspecified fracture of third lumbar vertebra, initial encounter for closed fracture; S32.019A Unspecified fracture of first lumbar vertebra, initial encounter for closed fracture; E87.0 Hyperosmolality and hypernatremia; J44.0 Chronic obstructive pulmonary disease with (acute) lower respiratory infection; J98.11 Atelectasis; Z51.5 Encounter for palliative care; Z66 Do not resuscitate; S01.312A Laceration without foreign body of left ear, initial encounter; Z79.84 Long term (current) use of oral hypoglycemic drugs; W01.0XXA Fall on same level from slipping, tripping and stumbling without subsequent striking against object, initial encounter; Y92.099 Unspecified place in other non-institutional residence as the place of occurrence of the external cause; M48.07 Spinal stenosis, lumbosacral region; M19.90 Unspecified osteoarthritis, unspecified site; Z79.82 Long term (current) use of aspirin; Z79.899 Other long term (current) drug therapy; M51.26 Other intervertebral disc displacement, lumbar region; E11.621 Type 2 diabetes mellitus with foot ulcer; I25.10 Atherosclerotic heart disease of native coronary artery without angina pectoris; L97.519 Non-pressure chronic ulcer of other part of right foot with unspecified severity; E11.40 Type 2 diabetes mellitus with diabetic neuropathy, unspecified; E78.00 Pure hypercholesterolemia, unspecified; E78.5 Hyperlipidemia, unspecified; E86.9 Volume depletion, unspecified; F31.9 Bipolar disorder, unspecified; I50.9 Heart failure, unspecified; I11.0 Hypertensive heart disease with heart failure; F09 Unspecified mental disorder due to known physiological condition; N40.1 Benign prostatic hyperplasia with lower urinary tract symptoms; N32.81 Overactive bladder; Z91.81 History of falling; N28.1 Cyst of kidney, acquired; K80.20 Calculus of gallbladder without cholecystitis without obstruction; I67.2 Cerebral atherosclerosis
CPT/HCPCS: 36415; 36600; 70450-TC; 71045-TC; 72131-TC; 80048-TC; 80053-TC; 80061-TC; 80076-TC; 82728-TC; 82962-TC; 83605-TC; 83615-TC; 83735-TC; 84100-TC; 84439-TC; 84443-TC; 84484-TC; 85025-TC; 85378-TC; 85730-TC; 86140-TC; 87040-TC; 87081-TC; 90715; 93308-TC; 93971-TC; 97110-TC; 97112-TC; 97116-TC; 97530-TC; A4349; A6403; C9803; G0378; J0456; J0696; J1100; J1650; J1815; J1940; J2270; J2543; J3490; J7030; J7040; J7050; J7060; J7070; Q9967; U0003